=== PATIENT | male | born 1980 ===

== ENCOUNTER 2018-06-23 21:03 | Emergency (ER) | payer SELFPAY ==
[2018-06-23 21:30] VITALS: RESP 16; O2SAT 100
[2018-06-23] MEDS ORDERED: Naproxen 500 MG TAB PO ONE (23:32)
--- NOTE | 2018-06-23 23:39 | ED PDOC ---
HPI: General Adult Time Seen by Provider: 06/23/18 23:23 Chief Complaint (Nursing): ENT Problem History Per: Patient Additional Complaint(s): Pt. states for the past 2-3 days he's had R earache. Denies fever, hx of DM, hearing changes. Past Medical History Reviewed: Historical Data, Nursing Documentation, Vital Signs Vital Signs: Last Vital Signs Temp 98.1 F 06/23/18 21:29 Pulse 105 H 06/23/18 21:29 Resp 16 06/23/18 21:29 BP 143/79 06/23/18 21:29 Pulse Ox 100 06/23/18 21:29 - Medical History PMH: No Chronic Diseases - Family History Family History: States: No Known Family Hx - Home Medications Home Medications: Ambulatory Orders Medication Instructions Recorded Neomycin/Polymyxin/Hydrocortis 4 drop AD TID #1 bottle 06/23/18 [Cortisporin Otic Susp] - Allergies Allergies/Adverse Reactions: Allergies Allergy/AdvReac Type Severity Reaction Status Date / Time No Known Allergies Allergy Verified 06/23/18 21:30 Review of Systems ROS Statement: Except As Marked, All Systems Reviewed And Found Negative ENT: Positive for: Ear Pain Physical Exam - Physical Exam Appears: Positive for: Well, Non-toxic, No Acute Distress Head Exam: Positive for: ATRAUMATIC, NORMAL INSPECTION, NORMOCEPHALIC Skin: Positive for: Normal Color, Warm. Negative for: Rash Eye Exam: Positive for: Normal appearance ENT: Positive for: TM Is/Are (intact, non-erythematous, non-bulging b/l), Hearing Is (grossly intact), Other (R ear canal is erythema, mildly edematous, white exudate noted; L ear canal WNL; no auricular swelling or tenderness; pulling on R tragus illicits pain; no mastoid swelling or tenderness b/l). Negative for: Pharyngeal Erythema, Tonsillar Exudate, Tonsillar Swelling Neck: Positive for: Normal (no LAD), Painless ROM, Supple Lymphatic: Positive for: Normal Exam Neurologic/Psych: Positive for: Alert, Oriented (x3) - ECG O2 Sat by Pulse Oximetry: 100 Disposition - Clinical Impression Clinical Impression: Otitis externa - Patient ED Disposition Is Patient to be Admitted: No - Disposition Referrals: George Vega MD [Staff Provider] - [facility] [Outside] Disposition: Routine/Home Disposition Time: 23:30 Condition: IMPROVED Additional Instructions: FOLLOW UP WITH DR. VEGA OR [facility] FOR FURTHER EVALUATION RETURN TO ED IMMEDIATELY IF SYMPTOMS WORSEN LESMIS IZQUIERDO, thank you for letting us take care of you today. Your provider was Seth Carreon MD and you were treated for RT EAR PAIN, HEADACHE. The emergency medical care you received today was directed at your acute symptoms. If you were prescribed any medication, please fill it and take as directed. It may take several days for your symptoms to resolve. Return to the Emergency Department if your symptoms worsen, do not improve, or if you have any other problems. Please contact your doctor or call one of the physicians/clinics you have been referred to that are listed on the Patient Visit Information form that is included in your discharge packet. Bring any paperwork you were given at discharge with you along with any medications you are taking to your follow up visit. Our treatment cannot replace ongoing medical care by a primary care provider outside of the emergency department. Thank you for allowing the [facility] team to be part of your care today. If you had an X-Ray or CT scan: A Radiologist will review the ED reading if any change in treatment is needed we will contact you. If you had a blood, urine, or wound culture: It will take several days for the results, if any change in treatment is needed we will contact you. If you had an STI test: It will take 48 hours for the results. Please call after 1 week if you have not heard back. Prescriptions: Neomycin/Polymyxin/Hydrocortis [Cortisporin Otic Susp] 4 drop AD TID #1 bottle Instructions: Outer Ear Infection (DC) Forms: [facility] (Setswana)
[2018-06-23 23:57] VITALS: BP 131/76; PULSE 96; TEMP 98.2
== END 2018-06-24 00:04 | disposition home or self-care (01) ==
LOC: H.ER 21:03
DX: H60.91 Unspecified otitis externa, right ear (principal)